=== PATIENT | male | born 1985 | race Two or more races ===

== ENCOUNTER 2020-02-23 01:59 | Emergency (ER) | payer MEDICAID ==
[~2020-02-23] VITALS: Ht 177.8 cm; Wt 112.0 kg
[2020-02-23 02:01] VITALS: BP 150/76
== END 2020-02-23 02:18 ==
LOC: ED 02:12
DX: K08.89 Other specified disorders of teeth and supporting structures (principal)
CPT/HCPCS: 99283

== ENCOUNTER 2020-03-13 21:22 | Emergency (ER) | payer MEDICAID ==
[~2020-03-13] VITALS: Ht 177.8 cm; Wt 110.4 kg
[2020-03-13 21:25] VITALS: BP 128/65
[2020-03-13] MEDS ORDERED: IBUPROFEN 800 MG TABLET ONE (22:33)
[2020-03-13] MEDS ORDERED: IBUPROFEN 800 MG TABLET PO ONE (23:00)
== END 2020-03-13 23:18 | disposition home or self-care (01) ==
LOC: ED 22:54
DX: S63.591A Other specified sprain of right wrist, initial encounter (principal); X58.XXXA Exposure to other specified factors, initial encounter; Y93.89 Activity, other specified; Y92.098 Other place in other non-institutional residence as the place of occurrence of the external cause; Y99.8 Other external cause status
CPT/HCPCS: 29125; 99283

== ENCOUNTER 2020-03-15 03:09 | Emergency (ER) | payer MEDICAID ==
[~2020-03-15] VITALS: Ht 177.8 cm; Wt 110.5 kg
[2020-03-15 03:12] VITALS: BP 115/32
[2020-03-15] MEDS ORDERED: HYDROcodone/APAP 5/325 TABLET ONE (03:30)
[2020-03-15] MEDS ORDERED: HYDROcodone/APAP 5/325 TABLET PO ONE (03:30)
== END 2020-03-15 03:59 | disposition home or self-care (01) ==
LOC: ED 03:52
DX: K08.89 Other specified disorders of teeth and supporting structures (principal); M25.531 Pain in right wrist
CPT/HCPCS: 99283

== ENCOUNTER 2020-04-18 18:59 | Emergency (ER) | payer MEDICAID ==
[~2020-04-18] VITALS: Ht 175.3 cm; Wt 111.9 kg
[2020-04-18 19:02] VITALS: BP 109/56
--- NOTE | 2020-04-18 19:37 | NUR ---
LABS DRAWN AND US TO BEDSIDE.
[2020-04-18 19:47] LABS: BASOPHILS # (AUTO) 0.04 x10^3/uL (0-0.1); BASOPHILS % (AUTO) 0 % (0-1); EOSINOPHILS # (AUTO) 0.29 x10^3/uL (0-0.4); EOSINOPHILS % (AUTO) 2 % (1-7); LYMPHOCYTES # (AUTO) 1.98 x10^3/uL (1-3.4); LYMPHOCYTES % (AUTO) 16 % (22-44); MD NO; MEAN CORPUSCULAR HEMOGLOBIN 32.6 pg (27.5-34.5); MEAN CORPUSCULAR HGB CONC 33.7 g/dL (33.2-36.2); MEAN CORPUSCULAR VOLUME 96.8 fL (81-97); MEAN PLATELET VOLUME 7.1 fL (7.4-10.4); MONOCYTES # (AUTO) 0.96 x10^3/uL (0.2-0.8); MONOCYTES % (AUTO) 8 % (2-9); NEUTROPHILS # (AUTO) 9.12 x10^3/uL (1.8-6.8); NEUTROPHILS % (AUTO) 74 % (42-75); PLATELET COUNT 315 x10^3/uL (130-400); RED BLOOD COUNT 4.59 x10^6/uL (4.38-5.82)
[2020-04-18 19:54] LABS: ALBUMIN 3.2 g/dL (3.4-5.0); ANION GAP 7 mmol/L (5-15); CALCIUM 8.4 mg/dL (8.5-10.1); CHLORIDE 107 mmol/L (98-107); CREATININE 1.64 mg/dL (0.7-1.3)
== END 2020-04-18 20:55 | disposition home or self-care (01) ==
LOC: ED 20:25
DX: L03.115 Cellulitis of right lower limb (principal); F17.200 Nicotine dependence, unspecified, uncomplicated
CPT/HCPCS: 36415; 80048; 82040; 85025; 87040; 99284

== ENCOUNTER 2020-07-11 07:26 | Emergency (ER) | payer MEDICAID ==
[~2020-07-11] VITALS: Ht 177.8 cm; Wt 111.4 kg
[2020-07-11 07:27] VITALS: BP 129/62
[2020-07-11] MEDS ORDERED: FLUORESCEIN/BENOXINATE 5 ML DROPS OP ONE (07:30)
[2020-07-11] MEDS ORDERED: FLUORESCEIN OPHTHALMIC 1 MG STRIP ONE (07:40)
--- NOTE | 2020-07-11 07:40 | NUR ---
RAMON MEJIA AT BEDSIDE TO EVAL PT
--- NOTE | 2020-07-11 08:03 | NUR ---
PT SITTING ON CHAIR, NO ACUTE DISTRESS NOTED. NO IV TO DC. REVIEWED DC INSTRUCTIONS WITH PT. UNDERSTANDING VERBALIZED. PT LEFT AMB, GAIT STEADY.
== END 2020-07-11 08:05 | disposition home or self-care (01) ==
LOC: ED 08:04
DX: H10.233 Serous conjunctivitis, except viral, bilateral (principal)
CPT/HCPCS: 99283

== ENCOUNTER 2020-09-05 08:34 | Emergency (ER) | payer MEDICAID ==
[~2020-09-05] VITALS: Ht 175.3 cm; Wt 115.2 kg
[2020-09-05] MEDS ORDERED: DIAZEPAM 5 MG TABLET ONE (09:10)
[2020-09-05] MEDS ORDERED: KETOROLAC 30 MG/1 ML ONE (09:10)
--- NOTE | 2020-09-05 09:15 | NUR ---
PT MEDICATED PER EMAR. RESTING ON [employer] W/ CALL LIGHT IN REACH AND SIDE RAILS UPX2. VSS, [place].
[2020-09-05] MEDS ORDERED: DIAZEPAM 5 MG TABLET PO ONE (09:30)
[2020-09-05] MEDS ORDERED: KETOROLAC 30 MG/1 ML IM ONE (09:30)
--- NOTE | 2020-09-05 09:50 | NUR ---
PT REPORTS PAIN NOW 6/10 FROM 8/10 AFTER MEDS.
[2020-09-05 10:08] VITALS: BP 134/47
== END 2020-09-05 10:13 | disposition home or self-care (01) ==
LOC: ED 08:52
DX: S39.012A Strain of muscle, fascia and tendon of lower back, initial encounter (principal); X58.XXXA Exposure to other specified factors, initial encounter; Y93.89 Activity, other specified; Y92.89 Other specified places as the place of occurrence of the external cause; Y99.8 Other external cause status
CPT/HCPCS: 96372; 99283; J1885

== ENCOUNTER 2020-10-31 08:04 | Emergency (ER) | payer MEDICAID ==
[~2020-10-31] VITALS: Ht 175.3 cm; Wt 119.1 kg
[2020-10-31 08:24] VITALS: BP 128/69
--- NOTE | 2020-10-31 08:33 | NUR ---
PT TO ROOM FROM LOBBY, REFUSED TO CHANGE INTO GOWN AND BP/SPO2 MONITORS, ERP AWARE.
--- NOTE | 2020-10-31 09:01 | NUR ---
PT UPRIGHT ON GURNEY AWAKE & CALM, REFUSED VS, RESPONDS APPROP TO STAFF, NO NEEDS AT THIS TIME, CALL LIGHT WITHIN REACH.
--- NOTE | 2020-10-31 10:00 | NUR ---
PT LAYING ON GURNEY AWAKE & TALKING ON CELLPHONE, REFUSED VS, RESPONDS APPROP TO STAFF, NO NEEDS AT THIS TIME, CALL LIGHT WITHIN REACH.
--- NOTE | 2020-10-31 10:24 | NUR ---
Patient given splint, discharge instructions and Rx, they have confirmed that they understand the instructions. Patient ambulatory with steady gait.
== END 2020-10-31 10:29 | disposition home or self-care (01) ==
LOC: ED 09:29
DX: S63.642A Sprain of metacarpophalangeal joint of left thumb, initial encounter (principal); X58.XXXA Exposure to other specified factors, initial encounter; Y93.72 Activity, wrestling; Y92.098 Other place in other non-institutional residence as the place of occurrence of the external cause; Y99.8 Other external cause status
CPT/HCPCS: 29125; 99284

== ENCOUNTER 2020-11-26 09:56 | Emergency (ER) | payer MEDICAID ==
[~2020-11-26] VITALS: Ht 177.8 cm; Wt 118.4 kg
[2020-11-26 09:58] VITALS: BP 147/55
--- NOTE | 2020-11-26 10:24 | NUR ---
RIGHT FOURTH DIGIT DEFORMITY WITH PAIN
== END 2020-11-26 12:09 | disposition home or self-care (01) ==
LOC: ED 10:19
DX: S63.634A Sprain of interphalangeal joint of right ring finger, initial encounter (principal); W23.0XXA Caught, crushed, jammed, or pinched between moving objects, initial encounter; Y93.89 Activity, other specified; Y92.69 Other specified industrial and construction area as the place of occurrence of the external cause; Y99.0 Civilian activity done for income or pay
CPT/HCPCS: 29130; 99283

== ENCOUNTER 2020-12-06 09:51 | Emergency (ER) | payer MEDICAID ==
[~2020-12-06] VITALS: Ht 177.8 cm; Wt 115.0 kg
[2020-12-06 09:57] VITALS: BP 123/60
[2020-12-06] MEDS ORDERED: CEFTRIAXONE 250 MG ONE (10:23)
[2020-12-06] MEDS ORDERED: AZITHROMYCIN 500 MG TABLET ONE (10:23)
[2020-12-06] MEDS ORDERED: AZITHROMYCIN 500 MG TABLET PO ONE (10:30)
[2020-12-06] MEDS ORDERED: CEFTRIAXONE 250 MG IM ONE (10:30)
== END 2020-12-06 10:46 | disposition home or self-care (01) ==
LOC: ED 10:43
DX: A56.8 Sexually transmitted chlamydial infection of other sites (principal)
CPT/HCPCS: 87491; 87591; 96372; 99283; J0696

== ENCOUNTER 2020-12-22 10:25 | Emergency (ER) | payer MEDICAID ==
[~2020-12-22] VITALS: Ht 177.8 cm; Wt 116.0 kg
--- NOTE | 2020-12-22 10:41 | NUR ---
PROVIDER AT BEDSIDE FOR ASSESSMENT. DISCUSSED PLAN OF CARE. QUESTIONS ANSWERED
--- NOTE | 2020-12-22 10:42 | NUR ---
PT COMES IN TODAY C/O LEFT TESTICULAR PAIN 03/01. PT STATES PAIN STARTED LAST NIGHT AND IS "THROBBING". MONITORS CONNECTED. STATES NO ADDITIONAL NEEDS AT THIS TIME.
[2020-12-22 11:06] LABS: MICROSCOPIC INDICATED
[2020-12-22 11:31] VITALS: BP 135/88
--- NOTE | 2020-12-22 11:32 | NUR ---
PT RESTING ON GURNEY. STATES 03/01 LEFT TESTICULAR PAIN. DENIES NEED FOR PAIN MEDICATION INTERVENTION AT THIS TIME. STATES NO ADDITIONAL NEEDS AT THIS TIME
--- NOTE | 2020-12-22 12:07 | NUR ---
PT AMBULATED TO DISCHARGE WITH STEADY GAIT. PT ENCOURAGED TO FOLLOWUP DISCUSSED. PT EDUCATED TO RETURN TO THE ED WITH WORSENING SYMPTOMS.
== END 2020-12-22 12:07 | disposition home or self-care (01) ==
LOC: ED 11:15
DX: I86.1 Scrotal varices (principal)
CPT/HCPCS: 76870; 81001; 99284

== ENCOUNTER 2021-01-01 18:48 | Emergency (ER) | payer MEDICAID ==
[~2021-01-01] VITALS: Ht 177.8 cm; Wt 113.7 kg
[2021-01-01 19:26] LABS: BASOPHILS % (AUTO) 1 % (0-1); EOSINOPHILS % (AUTO) 2 % (1-7); LYMPHOCYTES % (AUTO) 40 % (22-44); MEAN CORPUSCULAR HEMOGLOBIN 32.5 pg (27.5-34.5); MEAN CORPUSCULAR HGB CONC 34.2 g/dL (33.2-36.2); MEAN PLATELET VOLUME 6.9 fL (7.4-10.4); MONOCYTES % (AUTO) 10 % (2-9); NEUTROPHILS % (AUTO) 47 % (42-75); PLATELET COUNT 316 x10^3/uL (130-400); RED BLOOD COUNT 4.93 x10^6/uL (4.38-5.82); RED CELL DISTRIBUTION WIDTH 13.7 % (9.4-14.8)
[2021-01-01 19:27] LABS: MD NO
[2021-01-01 19:37] LABS: ALBUMIN 3.6 g/dL (3.4-5.0); CALCIUM 8.6 mg/dL (8.5-10.1); CHLORIDE 106 mmol/L (98-107)
[2021-01-01 19:43] LABS: ALANINE AMINOTRANSFERASE 74 U/L (12-78); ALKALINE PHOSPHATASE 43 U/L (45-117); ANION GAP 4 mmol/L (5-15); BILIRUBIN,TOTAL 0.5 mg/dL (0.2-1.0); CREATININE 1.75 mg/dL (0.7-1.3); TOTAL PROTEIN 6.9 g/dL (6.4-8.2)
[2021-01-01 21:25] VITALS: BP 113/61
== END 2021-01-01 21:31 | disposition home or self-care (01) ==
LOC: ED 19:00
DX: R07.89 Other chest pain (principal); R51.9 Headache, unspecified
CPT/HCPCS: 36415; 71046; 80053; 83690; 85025; 93005; 99285

== ENCOUNTER 2021-03-19 06:54 | Emergency (ER) | payer MEDICAID ==
[~2021-03-19] VITALS: Ht 177.8 cm; Wt 113.0 kg
--- NOTE | 2021-03-19 07:10 | NUR ---
PT AMBULATORY TO BR, PT CHANGED INTO GOWN, MONITORS IN PLACE. PT C/O GENERALIZED BODY ACHES, DENIES SOB/FATIGUE/GI SYMPTOMS. PT STATES "DOES NOT FEEL LIKE HIMSELF AND SOMETHING IS UP."
[2021-03-19 07:38] LABS: MICROSCOPIC AUTO
[2021-03-19 07:48] LABS: BASOPHILS % (AUTO) 1 % (0-1); EOSINOPHILS % (AUTO) 4 % (1-7); LYMPHOCYTES % (AUTO) 27 % (22-44); MEAN CORPUSCULAR HEMOGLOBIN 32.7 pg (27.5-34.5); MEAN CORPUSCULAR HGB CONC 34.3 g/dL (33.2-36.2); MEAN PLATELET VOLUME 6.8 fL (7.4-10.4); MONOCYTES % (AUTO) 6 % (2-9); NEUTROPHILS % (AUTO) 61 % (42-75); PLATELET COUNT 256 x10^3/uL (130-400); RED BLOOD COUNT 4.79 x10^6/uL (4.38-5.82); RED CELL DISTRIBUTION WIDTH 14.2 % (9.4-14.8)
[2021-03-19 07:57] LABS: MD NO
[2021-03-19 07:59] LABS: ALANINE AMINOTRANSFERASE 125 U/L (12-78); ALBUMIN 3.2 g/dL (3.4-5.0); ANION GAP 4 mmol/L (5-15); CALCIUM 8.2 mg/dL (8.5-10.1); CHLORIDE 110 mmol/L (98-107); CREATININE 1.53 mg/dL (0.7-1.3)
[2021-03-19 08:01] VITALS: BP 137/50
[2021-03-19 08:01] LABS: ALKALINE PHOSPHATASE 36 U/L (45-117); BILIRUBIN,TOTAL 0.2 mg/dL (0.2-1.0); TOTAL PROTEIN 5.9 g/dL (6.4-8.2)
--- NOTE | 2021-03-19 08:01 | NUR ---
PT RESTING ON GURNEY WITH EYES CLOSED, NADN/VSS. CALL LIGHT WITHIN REACH. NO NEEDS AT THIS TIME
--- NOTE | 2021-03-19 08:11 | NUR ---
PT REFUSED COVID SWAB. PROVIDERS AWARE
--- NOTE | 2021-03-19 08:23 | NUR ---
Patient given discharge instructions and they have confirmed that they understand the instructions. Patient ambulatory with steady gait.
== END 2021-03-19 08:26 | disposition home or self-care (01) ==
LOC: ED 07:50
DX: N28.9 Disorder of kidney and ureter, unspecified (principal); R94.8 Abnormal results of function studies of other organs and systems; M79.10 Myalgia, unspecified site; R51.9 Headache, unspecified
CPT/HCPCS: 36415; 71045; 80053; 80074; 81001; 85025; 99284

== ENCOUNTER 2021-03-21 05:46 | Observation (INO) | payer MEDICAID ==
[~2021-03-21] VITALS: Ht 177.8 cm; Wt 112.0 kg
[2021-03-21] MEDS ORDERED: KETOROLAC 30 MG/1 ML ONE (06:08)
[2021-03-21] MEDS ORDERED: ONDANSETRON 2MG/ML, 2ML ONE (06:08)
[2021-03-21] MEDS ORDERED: MORPHINE SULFATE 4 MG/ML, 1ML ONE ×2 (06:18→08:18)
[2021-03-21] MEDS ORDERED: SODIUM CHLORIDE 0.9% 1,000ML IV ONE (06:30)
[2021-03-21] MEDS ORDERED: ONDANSETRON 2MG/ML, 2ML IVPush ONE (06:30)
[2021-03-21] MEDS ORDERED: MORPHINE SULFATE 4 MG/ML, 1ML IVPush ONE ×2 (06:30→08:00)
[2021-03-21 06:43] LABS: BASOPHILS % (AUTO) 1 % (0-1); EOSINOPHILS % (AUTO) 3 % (1-7); LYMPHOCYTES % (AUTO) 32 % (22-44); MEAN CORPUSCULAR HEMOGLOBIN 32.5 pg (27.5-34.5); MEAN CORPUSCULAR HGB CONC 34.2 g/dL (33.2-36.2); MEAN PLATELET VOLUME 6.9 fL (7.4-10.4); MONOCYTES % (AUTO) 8 % (2-9); NEUTROPHILS % (AUTO) 56 % (42-75); PLATELET COUNT 257 x10^3/uL (130-400); RED BLOOD COUNT 4.96 x10^6/uL (4.38-5.82); RED CELL DISTRIBUTION WIDTH 14.2 % (9.4-14.8)
[2021-03-21 06:44] LABS: MD NO
--- NOTE | 2021-03-21 06:44 | NUR ---
Patient presents to ER c/o bilat flank pain; worse on the left. Patient was here x2 days ago for the same. He was told his kidney function labs were elevated and to get them checked out in a few days. 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 Patient is in obvious pain. Respirations even and unlabored. IV established; medicated patient per mar. Family at bedside.
[2021-03-21 06:48] LABS: MICROSCOPIC INDICATED
[2021-03-21 06:53] LABS: ALANINE AMINOTRANSFERASE 144 U/L (12-78); ALBUMIN 3.4 g/dL (3.4-5.0); ANION GAP 5 mmol/L (5-15); CALCIUM 8.6 mg/dL (8.5-10.1); CHLORIDE 108 mmol/L (98-107); CREATININE 1.44 mg/dL (0.7-1.3)
--- NOTE | 2021-03-21 06:57 | NUR ---
Report given to GENE Lisa. Patient care transferred.
[2021-03-21 07:07] LABS: ALKALINE PHOSPHATASE 37 U/L (45-117); BILIRUBIN,TOTAL 0.6 mg/dL (0.2-1.0); CREATINE KINASE, TOTAL 6075 U/L (39-308); TOTAL PROTEIN 6.4 g/dL (6.4-8.2)
[2021-03-21] MEDS ORDERED: LACTATED RINGERS 1,000 ML IVBOLUS ONE (07:30)
[2021-03-21] MEDS ORDERED: ONDANSETRON ODT 4 MG PO PRN (08:00)
[2021-03-21] MEDS ORDERED: METHOCARBAMOL 500 MG TABLET PO PRN (08:00)
[2021-03-21] MEDS ORDERED: TRAZODONE 50MG TABLET PO PRN (08:00)
[2021-03-21] MEDS ORDERED: ACETAMINOPHEN 325 MG TABLET PO PRN (08:00)
[2021-03-21] MEDS ORDERED: LACTATED RINGERS 1,000 ML IV SCH (08:00)
[2021-03-21] MEDS ORDERED: POLYETHYLENE GLYCOL 17 GM PACKET PO PRN (08:00)
[2021-03-21] MEDS ORDERED: SODIUM CHLORIDE 0.9% 1,000ML IVBOLUS ONE (08:00)
--- NOTE | 2021-03-21 08:23 | NUR ---
FIRST CONTACT W/ PT D/T PT CARE: PT MEDICATED PER EMAR. VSS, MARIANELAN. US AT BEDSIDE. 2L BOLUS INFUSING PER EMAR FOR A TOTAL OF 3L NS BOLUS IN ED.
--- NOTE | 2021-03-21 08:40 | NUR ---
REPORT GIVEN TO DARIN MILLS. PT READY FOR TRANSPORT AT THIS TIME. [place] CORON[facility].
[2021-03-21] MEDS ORDERED: SENNA/DOCUSATE TABLET PO SCH (09:00)
[2021-03-21 09:03] VITALS: BP 158/77
[2021-03-21] MEDS ORDERED: ENOXAPARIN 40 MG/0.4 ML SQ SCH (09:30)
[2021-03-21 13:25] VITALS: BP 116/69
== END 2021-03-21 14:32 | disposition left against medical advice (07) ==
LOC: ED 07:08 → 4EST 07:48 → INTOOBSV 07:48 → SUATTDRO 07:50 → 4EST 09:00 → ED 09:44
PROVIDERS: ADMIT Hospitalist; ATTEND Hospitalist
DX: M62.82 Rhabdomyolysis (principal); R79.89 Other specified abnormal findings of blood chemistry; N28.9 Disorder of kidney and ureter, unspecified; R74.01 Elevation of levels of liver transaminase levels; R10.9 Unspecified abdominal pain; Z79.890 Hormone replacement therapy; Z79.899 Other long term (current) drug therapy
CPT/HCPCS: 36415; 76770; 80053; 81001; 82550; 85025; 87086; 96361; 96374; 96375; 96376; 99284; G0378; J2270; J2405; J7030; J7120

== ENCOUNTER 2021-06-01 20:28 | Emergency (ER) | payer MEDICAID ==
[~2021-06-01] VITALS: Ht 172.7 cm; Wt 114.1 kg
[2021-06-01 20:42] VITALS: BP 124/56
[2021-06-01 21:33] LABS: BASOPHILS % (AUTO) 1 % (0-1); EOSINOPHILS % (AUTO) 3 % (1-7); LYMPHOCYTES % (AUTO) 28 % (22-44); MEAN CORPUSCULAR HEMOGLOBIN 33.3 pg (27.5-34.5); MEAN CORPUSCULAR HGB CONC 34.5 g/dL (33.2-36.2); MEAN PLATELET VOLUME 6.5 fL (7.4-10.4); MONOCYTES % (AUTO) 8 % (2-9); NEUTROPHILS % (AUTO) 61 % (42-75); PLATELET COUNT 261 x10^3/uL (130-400); RED BLOOD COUNT 4.86 x10^6/uL (4.38-5.82); RED CELL DISTRIBUTION WIDTH 13.7 % (9.4-14.8)
[2021-06-01 21:44] LABS: ALBUMIN 3.2 g/dL (3.4-5.0); CALCIUM 8.5 mg/dL (8.5-10.1)
[2021-06-01 21:50] LABS: ALANINE AMINOTRANSFERASE 104 U/L (12-78); ALKALINE PHOSPHATASE 49 U/L (45-117); BILIRUBIN,TOTAL 0.5 mg/dL (0.2-1.0); CREATININE 1.37 mg/dL (0.7-1.3); TOTAL PROTEIN 6.3 g/dL (6.4-8.2); TROPONIN I < 0.015 ng/mL (0.000-0.045)
[2021-06-01 21:53] LABS: ANION GAP 3 mmol/L (5-15); CHLORIDE 110 mmol/L (98-107)
[2021-06-01] MEDS ORDERED: KETOROLAC 30 MG/1 ML IM ONE (23:00)
[2021-06-01] MEDS ORDERED: KETOROLAC 30 MG/1 ML ONE (23:10)
--- NOTE | 2021-06-01 23:11 | NUR ---
PT PRESENTS TO THE ED WITH CHEST PAIN, PT RESTING ON GURNEY, AND GIVEN IM TORADOL
--- NOTE | 2021-06-01 23:47 | NUR ---
Patient given discharge instructions and they have confirmed that they understand the instructions. Patient ambulatory with steady gait.
== END 2021-06-01 23:49 | disposition home or self-care (01) ==
LOC: ED 23:30
DX: R07.89 Other chest pain (principal)
CPT/HCPCS: 36415; 71046; 80053; 84484; 85025; 93005; 96372; 99285; J1885

== ENCOUNTER 2021-08-18 12:08 | Emergency (ER) | payer MEDICAID ==
[~2021-08-18] VITALS: Ht 175.3 cm; Wt 109.9 kg
[2021-08-18] MEDS ORDERED: KETOROLAC 30 MG/1 ML IM ONE (14:00)
[2021-08-18] MEDS ORDERED: KETOROLAC 30 MG/1 ML ONE (14:05)
[2021-08-18 14:22] VITALS: BP 128/49
== END 2021-08-18 14:24 | disposition home or self-care (01) ==
LOC: ED 12:13
DX: S60.041A Contusion of right ring finger without damage to nail, initial encounter (principal); X58.XXXA Exposure to other specified factors, initial encounter; Y93.89 Activity, other specified; Y92.89 Other specified places as the place of occurrence of the external cause; Y99.8 Other external cause status
CPT/HCPCS: 73130; 73140; 96372; 99284; J1885